=== PATIENT | female | born 1990 | race Two or more races ===

== ENCOUNTER 2022-04-18 22:00 | Inpatient (IN) | payer BC ==
[~2022-04-18] VITALS: Ht 157.5 cm; Wt 68.0 kg
[2022-04-18 22:15] VITALS: BP 102/50
[2022-04-18] MEDS ORDERED: MORPHINE SULFATE 5 MG/ML VIAL IVP PRN (22:20)
[2022-04-18] MEDS ORDERED: CARBOPROST 250 MCG/ML AMP IM PRN (22:20)
[2022-04-18] MEDS ORDERED: ONDANSETRON 4 MG/2 ML VIAL IVP PRN (22:20)
[2022-04-18] MEDS ORDERED: METHYLERGONOVINE 0.2 MG/ML AMP IM PRN (22:20)
[2022-04-18] MEDS ORDERED: LACTATED RINGERS 500 ML IV SCH (22:20)
[2022-04-18] MEDS ORDERED: MORPHINE SULFATE 10 MG/ML VIAL ONE (22:24)
[2022-04-18] MEDS ORDERED: ONDANSETRON 4 MG/2 ML VIAL ONE (22:25)
[2022-04-18 22:27] VITALS: BP 102/51
[2022-04-18 22:42] LABS: BASOPHILS % (AUTO) 0.1 % (0.0-2.0); EOSINOPHILS % (AUTO) 0.1 % (0.0-4.0); HEMATOCRIT 35.5 % (36-48); LYMPHOCYTES % (AUTO) 6.6 % (20.5-51.1); MEAN CORPUSCULAR HEMOGLOBIN 29 pg (27-31); MEAN CORPUSCULAR HGB CONC 34 g/dL (33-37); MEAN CORPUSCULAR VOLUME 84.3 fL (80-94); MONOCYTES # (AUTO) 0.5 K/uL (0.8-1.0); MONOCYTES % (AUTO) 3.3 % (1.7-9.3); NEUTROPHILS # (AUTO) 13.3 K/uL (1.8-7.7); NEUTROPHILS % (AUTO) 89.9 % (42.2-75.2); PLATELET COUNT (AUTO) 272 K/uL (140-450); RED BLOOD CELL COUNT(AUTO) 4.21 MIL/uL (4.20-5.40); RED CELL DISTRIBUTION WIDTH 13.9 % (11.6-13.7); WHITE BLOOD COUNT (AUTO) 14.8 K/uL (4.8-10.8)
[2022-04-18 23:07] LABS: PROTHROMBIN TIME 9.6 secs (10.8-13.4)
[2022-04-18 23:08] LABS: ALBUMIN 2.8 g/dL (3.4-5.0); ANION GAP 12.4 (8-16); CARBON DIOXIDE 21.2 mmol/L (21-32); CREATININE 0.6 mg/dL (0.6-1.3); POTASSIUM 3.6 mmol/L (3.5-5.1); TOTAL BILIRUBIN 0.4 mg/dL (0.0-1.0)
[2022-04-18] MEDS ORDERED: fentaNYL citrate 0.05 MG/ML VIAL ONE (23:35)
[2022-04-18] MEDS ORDERED: ROPIVACAINE 0.2%/NS PREMIX 200 ML EPI ONE (23:35)
[2022-04-19] MEDS ORDERED: CLINDAMYCIN 900 MG in DEXTROSE 5% 100 ML IV SCH ×2
[2022-04-19] MEDS ORDERED: OXYTOCIN 20 UNITS in LACTATED RINGERS 1,000 ML IV SCH (01:00)
[2022-04-19] MEDS: LACTATED RINGERS 1,000 ML IV SCH ×4 (04:27→12:31)
[2022-04-19 04:54] LABS: APPEARANCE,URINE CLEAR (CLEAR); BILIRUBIN,URINE NEGATIVE (NEGATIVE); BLOOD, URINE 3+ (NEGATIVE); COLOR,URINE YELLOW (YELLOW); LEUKOCYTE ESTERASE ,URINE NEGATIVE (NEGATIVE); NITRITE, URINE NEGATIVE (NEGATIVE); PH,URINE 6.5 (5.0-9.0); UGLUCOSE NEGATIVE (NEGATIVE)
[2022-04-19 05:25] LABS: RBC,URINE 0-5 /HPF (0-5); WBC,URINE 0-5 /HPF (0-5)
[2022-04-19] MEDS ORDERED: OXYTOCIN 20 UNITS/LR PREMIX 1,000 ML IV ONE (09:05)
--- NOTE | 2022-04-19 10:10 | NUR ---
PATIENT HAS BEEN SCREENED AND CATEGORIZED LOW NUTRITION RISK. PATIENT WILL BE SEEN WITHIN 7 DAYS OF ADMISSION. 04/25/22 REVIEWED BY URIEL VEGA RD
[2022-04-19] MEDS ORDERED: ROPIVACAINE 0.2%/NS PREMIX 200 ML EPI ONE (12:28)
--- NOTE | 2022-04-19 19:00 | NUR ---
ARRIVED TO ROOM MYSELF AND FELLOW RT MCKAY. PT DELIVERED BABY AT 18:36. BABY WAS NOT CRYING DUE TO MECONIUM. BABY WAS BROUGHT TO WARMER. BABY WAS WARM DRIED AND STIMULATED. WE SUCTIONED MODERATE AMOUNT OF MECONIUM AND GAVE POSITIVE PRESSURE. BABY WAS LEFT IN NO DISTRESS, SATING 100% ON ROOM AIR.
[2022-04-19] MEDS ORDERED: IBUPROFEN 800 MG TAB PO PRN (19:35)
[2022-04-19] MEDS ORDERED: MEASLES, MUMPS, AND RUBELLA 1 VIAL SQVAC ONE (19:35)
[2022-04-19] MEDS ORDERED: METHYLERGONOVINE 0.2 MG TAB PO PRN (19:35)
[2022-04-19] MEDS ORDERED: METHYLERGONOVINE 0.2 MG/ML AMP IM PRN (19:35)
[2022-04-19] MEDS ORDERED: OXYTOCIN 10 UNITS/ML VIAL IM PRN (19:35)
[2022-04-19] MEDS ORDERED: BENZOCAINE/MENTHOL 20%-0.5% 60 GM CAN TP PRN (19:35)
[2022-04-19] MEDS ORDERED: oxyCODONE/APAP 5/325 MG 1 TAB TAB PO PRN (21:40)
[2022-04-19] MEDS: HYDROcodone/APAP 5/325 MG 1 TAB TAB PO PRN (22:48)
[2022-04-20] MEDS: HYDROcodone/APAP 5/325 MG 1 TAB TAB PO PRN (04:21)
[2022-04-20 05:52] LABS: HEMATOCRIT 29.2 % (36-48)
[2022-04-20] MEDS: IBUPROFEN 800 MG TAB PO PRN (12:21)
[2022-04-21] MEDS: IBUPROFEN 800 MG TAB PO PRN (08:54)
[2022-04-22] MEDS: IBUPROFEN 800 MG TAB PO PRN (04:15)
== END 2022-04-22 15:00 | disposition home or self-care (01) | DRG 807 ==
LOC: MLD 22:00 → MFCC 04-19 19:54
PROVIDERS: ADMIT Obstetrics & Gynecology; ATTEND Obstetrics & Gynecology
PROC: 10E0XZZ Delivery of Products of Conception, External Approach (ICD-10-PCS; principal; 2022-04-19)
PROC: 0KQM0ZZ Repair Perineum Muscle, Open Approach (ICD-10-PCS; 2022-04-19)
PROC: 3E0R3BZ Introduction of Anesthetic Agent into Spinal Canal, Percutaneous Approach (ICD-10-PCS; 2022-04-19)
PROC: 00HU33Z Insertion of Infusion Device into Spinal Canal, Percutaneous Approach (ICD-10-PCS; 2022-04-19)
DX: O77.0 Labor and delivery complicated by meconium in amniotic fluid (principal); Z37.0 Single live birth; O70.1 Second degree perineal laceration during delivery; O99.824 Streptococcus B carrier state complicating childbirth; Z3A.39 39 weeks gestation of pregnancy
CPT/HCPCS: 36415; 51702; 80053; 81001; 85018; 85025; 85610; 85730; 86592; 86886; 86900; 86901; 87086; J2270; J2405; J2590; J2795; J3010; J3490; J7060